=== PATIENT | male | born 1975 | race Asian ===

== ENCOUNTER 2019-07-08 20:14 | Emergency (ER) | payer BC ==
[~2019-07-08] VITALS: Ht 177.8 cm; Wt 77.3 kg
[2019-07-08 20:20] VITALS: BP 125/76; TEMP 97.2
[2019-07-08 22:20] VITALS: PULSE 60
== END 2019-07-08 22:28 | disposition home or self-care (01) ==
LOC: COL.ER 20:14
DX: S61.211A Laceration without foreign body of left index finger without damage to nail, initial encounter (principal); Z23 Encounter for immunization; W26.0XXA Contact with knife, initial encounter; Y92.000 Kitchen of unspecified non-institutional (private) residence as the place of occurrence of the external cause